=== PATIENT | female | born 2000 | race African-American/Black ===

== ENCOUNTER 2019-08-23 11:51 | Outpatient (CLI) | payer OTHER ==
--- NOTE | 2019-08-23 14:14 | Vascular Lab Report ---
DUPLEX DOPPLER LOWER EXTREMITY VEINS, BILATERAL INDICATION: Bilateral leg pain for 2 weeks, left greater than right.. Patient is 38 weeks . TECHNIQUE: Duplex doppler imaging was performed through the veins of both lower extremities using ve nous compression and other maneuvers. COMPARISON: No relevant prior imaging study available. FINDINGS: Right Common femoral vein: Negative. Right Superficial femoral vein: Negative. Right Popliteal vein: Negative. Right Calf veins: Negative. Left Common femoral vein: Negative. Left Superficial femoral vein: Negative. Left Popliteal vein: Negative. Left Calf veins: Negative. Additional findings: None.. IMPRESSION: No sonographic evidence for DVT in either lower extremity. Signer Name: Tyrell Fritz Jr, MD Signed: 08/23/2019 2:09 PM Workstation Name: [id number]
[2019-08-23 15:09] VITALS: BP 118/77
== END 2019-08-23 15:35 | disposition home or self-care (01) ==
LOC: TRG 11:51
PROVIDERS: ATTEND Obstetrics & Gynecology
DX: O26.893 Other specified pregnancy related conditions, third trimester (principal); Z3A.38 38 weeks gestation of pregnancy
CPT/HCPCS: 93970

== ENCOUNTER 2019-09-10 07:01 | Inpatient (IN) | payer OTHER ==
[2019-09-10] MEDS: LACTATED RINGERS 1,000 ML IV SCH ×2 (07:45→16:58)
[2019-09-10 10:15] LABS: Basophils # (Auto) 0.1 K/mm3 (0.0-0.1); Basophils % (Auto) 0.5 % (0.0-1.8); Eosinophils % (Auto) 0.2 % (0.0-4.3); Hematocrit 23.7 % (30.3-42.9); Hemoglobin 7.5 gm/dl (10.1-14.3); Lymphocytes # (Auto) 1.5 K/mm3 (1.2-5.4); Lymphocytes % (Auto) 12.5 % (13.4-35.0); Mean Corpuscular HGB Conc 32 % (30-34); Monocytes # (Auto) 0.8 K/mm3 (0.0-0.8); Monocytes % (Auto) 6.6 % (0.0-7.3); Platelet Count 263 K/mm3 (140-440); Red Blood Count 3.38 M/mm3 (3.65-5.03)
[2019-09-10 10:35] LABS: Mean Corpuscular Volume 70 fl (79-97); Red Cell Distribution Width 20.3 % (13.2-15.2)
[2019-09-10 10:38] LABS: Alanine Aminotransferase 6 units/L (7-56); Uric Acid 8.1 mg/dL (3.5-7.6)
[2019-09-10] MEDS ORDERED: AMPICILLIN/NS 2 GM/100 ML 2 GM/100 ML BAG IV ONE ×3 (11:17→12:53)
--- NOTE | 2019-09-10 12:29 | History and Physical Report ---
History of Present Illness Date of examination: 09/10/19 Date of admission: 09/10/19 08:46 Chief complaint: Labor, possible SROM History of present illness: Patient states she started having cntractions ~2a todya, however thinks she may have been leaking since wednesday. +Nitrazine here. Initial BP's noted, Uric acid 8.1, 3+LLE and periorbital, she denies MITCHELL, visual changes or RUQ. Past History : 1 Term Births: 0 Premature Births: 0 Living Children: 0 Para: 0 Mult. Births: 0 Prev : 0 Prev. attempt? 0 Aborta: 0 Elect. Ab: 0 Spont. Ab: 0 Ectopics: 0 Past Medical History: asthma. last inhaler use 2 years ago Past Surgical History: Negative Past Surgical History Past Medical History Surgery (Non-damper worker): Negative Past Surgical History Abnormal PAP: negative MARIA EUGENIA Exposure: negative Infertility: negative Uterine Anomaly: negative Uterine Surgery (not C/S): negative Other Gynecologic Problems: negative Family Hx: mgf stroke age 65 Social Hx: single. lives with FOC. "Nithya" denies ETOH. tobacco, drugs works as lead warehouse associate Infection History Hx of STD: none HIV Risk Eval: low risk Hepatitis B Risk Eval: low risk Personal hx. of genital herpes: no Partner hx. of genital herpes: no Rash, Viral, or Febrile illness since last LMP? no Varicella/Chicken Pox Status: Immunized TB Risk: no Genetic History Congenital Heart Defect: Mom: no Dad: no Jacy Disease: Mom: no Dad: no Thalassemia Mom: no Dad: no Neural Tube Defect Mom: no Dad: no Down's Syndrome Mom: no Dad: no Nir-Sachs Mom: no Dad: no Sickle Cell Disease/Trait Mom: no Dad: no Hemophilia Mom: no Dad: no Muscular Dystrophy Mom: no Dad: no Cystic Fibrosis Mom: no Dad: no [place] Chorea Mom: no Dad: no Mental Retardation Mom: no Dad: no Fragile X Mom: no Dad: no Other Genetic/Chromosomal Disorder Mom: no Dad: no Child w/other defect Mom: no Dad: no Enviromental Exposures Enviromental Exposures Reviewed Xray Exposure: no Medication, drug, or alcohol use since LMP: no Chemical/Other Exposure: no Exposure to Cat Liter: no Hx of Parvovirus (Fifth Disease): no Occupational Exposure to Children: none Active Medications (reviewed today): None Current Allergies (reviewed today): No known allergies Past History - Obstetrical History : 1 Medications and Allergies Allergies Allergy/AdvReac Type Severity Reaction Status Date / Time No Known Allergies Allergy Verified 08/23/19 12:38 Home Medications Medication Instructions Recorded Confirmed Last Taken Type No Known Home Medications [No 09/10/19 09/10/19 Unknown History Reported Home Medications] Active Meds: Active Medications Lactated Ringer's (Lactated Ringers) 1,000 mls @ 125 mls/hr IV DIRECT NEELIMA - Vital Signs Vital signs: Vital Signs Pulse BP 85 169/109 09/10/19 07:30 09/10/19 07:30 Temp Pulse Resp BP Pulse Ox 98.3 F 83 131/84 98 09/10/19 10:01 09/10/19 12:04 09/10/19 12:04 09/10/19 12:04 - Physical Exam Breasts: Positive: deferred Lungs: Positive: Clear to auscultation, Normal air movement Abdomen: Positive: normal appearance, soft. Negative: tenderness Genitourinary (Female): Positive: normal external genitalia, normal perenium Vulva: both: normal Uterus: Positive: enlarged. Negative: tender Anus/Rectum: Positive: normal perianal skin Extremities: Positive: edema (+3) Deep Tendon Reflex Grade: Normal +2 (no clonus) - Obstetrical FHR: category 1 Uterine Contraction Monitor Mode: External Cervical Dilatation: 4 Cervical Effacement Percentage: 90 station: -1 Uterine Contraction Pattern: Irregular (After verbal consent obtained AROM performed, small clear fluid, IUPC placed without difficulty) Results Result Diagrams: 09/10/19 09:07 09/10/19 09:07 Abnormal lab results 09/10/19 09/10/19 Range/Units 09:07 09:07 WBC 12.3 H (4.5-11.0) K/mm3 RBC 3.38 L (3.65-5.03) M/mm3 Hgb 7.5 L (10.1-14.3) gm/dl Hct 23.7 L (30.3-42.9) % MCV 70 L (79-97) fl MCH 22 L (28-32) pg RDW 20.3 H (13.2-15.2) % Lymph % (Auto) 12.5 L (13.4-35.0) % Seg Neutrophils % 80.2 H (40.0-70.0) % Seg Neutrophils # 9.8 H (1.8-7.7) K/mm3 Creatinine 0.6 L (0.7-1.2) mg/dL Uric Acid 8.1 H (3.5-7.6) mg/dL ALT 6 L (7-56) units/L All other labs normal. Assessment and Plan - Patient Problems (1) 40 weeks gestation of Current Visit: Yes Status: Acute (2) PROM with onset of labor within 24 hours of rupture Current Visit: Yes Status: Acute Qualifiers: PROM gestational age: full term Qualified Code(s): O42.02 - Full-term premature rupture of membranes, onset of labor within 24 hours of rupture Plan to address problem: Will start Ampicillin (3) Elevated blood pressure reading Current Visit: Yes Status: Acute Plan to address problem: elevated uric acid, +3 edema, UA pending, labs o/w normal. Elevated BP's possibly pain related. Observe closely
[2019-09-10] MEDS ORDERED: BUTORPHANOL 2 MG/1 ML INJ IV PRN (12:37)
[2019-09-10] MEDS ORDERED: LIDOCAINE (2%) 20 MG/1 ML VIAL 20 ML MDV INFILTRATI ONE (12:37)
[2019-09-10] MEDS ORDERED: MINERAL OIL 30 ML ORAL LIQD PO PRN (12:37)
[2019-09-10] MEDS ORDERED: TERBUTALINE 1 MG/1 ML INJ IVP PRN (12:37)
[2019-09-10] MEDS ORDERED: ONDANSETRON 4 MG/2 ML INJ IV PRN ×2 (12:37→23:34)
[2019-09-10] MEDS ORDERED: ePHEDrine SULFATE 50 MG/1 ML INJ IV PRN ×2 (12:37→15:01)
[2019-09-10] MEDS ORDERED: LACTATED RINGERS 1,000 ML IV SCH ×3 (13:00→23:45)
[2019-09-10] MEDS ORDERED: OXYTOCIN 20 UNIT/1000ML DRIP 20 UNITS/1,000 ML BAG IV SCH (13:00)
[2019-09-10] MEDS ORDERED: OXYTOCIN DRIP 30 UNITS/500 ML BAG IV SCH (13:00)
[2019-09-10 14:25] LABS: Hematocrit 24.6 % (30.3-42.9); Hemoglobin 7.6 gm/dl (10.1-14.3); Mean Corpuscular HGB Conc 31 % (30-34); Mean Corpuscular Volume 71 fl (79-97); Platelet Count 267 K/mm3 (140-440); Red Blood Count 3.46 M/mm3 (3.65-5.03)
[2019-09-10 14:31] LABS: Red Cell Distribution Width 20.4 % (13.2-15.2)
[2019-09-10] MEDS ORDERED: NALOXONE 2 MG/2 ML INJ IV PRN (15:01)
--- NOTE | 2019-09-10 15:03 | Anesthesia Consultation ---
Anesthesia Consult and Med Hx Date of service: 09/10/19 - Airway Anesthetic Teeth Evaluation: Good ROM Head & Neck: Adequate Mental/Hyoid Distance: Adequate Mallampati Class: Class II Intubation Access Assessment: Probably Good - Pulmonary Exam CTA: Yes - Cardiac Exam Cardiac Exam: RRR - Pre-Operative Health Status ASA Pre-Surgery Classification: ASA3 Proposed Anesthetic Plan: Epidural - Pulmonary Hx Asthma: Yes COPD: No Hx Pneumonia: No - Cardiovascular System Hx Hypertension: No - Central Nervous System Hx Seizures: No Hx Psychiatric Problems: No - Endocrine Hx Renal Disease: No Hx End Stage Renal Disease: No Hx Hypothyroidism: No Hx Hyperthyroidism: No - Hematic Hx Anemia: Yes Hx Sickle Cell Disease: No - Other Systems Hx Alcohol Use: No
[2019-09-10] MEDS ORDERED: fentaNYL-BUPIV 2 MCG/ML-0.125% 200 MCG/100 ML BAG EPIDURAL SCH (16:00)
[2019-09-10] MEDS: AMPICILLIN/NS 1 GM/50 ML 1 GM/50 ML BAG IV SCH ×2 (16:13→20:00)
[2019-09-10] MEDS ORDERED: FAMOTIDINE 20 MG/2 ML INJ IV SCH (17:00)
[2019-09-10] MEDS ORDERED: BUPIVACAINE/PF (0.25%) 2.5 MG/ML 10 ML VIAL INFILTRATI ONE (17:33)
[2019-09-10] MEDS ORDERED: DEXMEDETOMIDINE 200 MCG/2 ML VIAL IV ONE (17:34)
[2019-09-10 20:25] LABS: Bilirubin,Urine NEG (Negative); Blood,Urine NEG (Negative); Color,Urine Yellow (Yellow); Urobilinogen,Urine < 2.0 mg/dL (<2.0)
[2019-09-10] MEDS ORDERED: CARBOPROST TROMETHAMINE 250 MCG/1 ML INJ IM ONE ×2 (22:39→22:42)
[2019-09-10] MEDS ORDERED: miSOPROStol 200 MCG TAB PR ONE (22:39)
[2019-09-10] MEDS ORDERED: OXYTOCIN 10 UNIT/1 ML INJ IM ONE (22:39)
[2019-09-10] MEDS ORDERED: OXYTOCIN 10 UNIT/1 ML INJ ONE (22:40)
[2019-09-10] MEDS ORDERED: LOPERAMIDE 2 MG CAP PO ONE (22:43)
--- NOTE | 2019-09-10 23:25 | Procedure Note ---
OB Delivery Note - Delivery Date of Delivery: 09/10/19 Surgeon: ZACHARIAH ZHANG Estimated blood loss: other (750mL) - Vaginal Delivery presentation: vertex Delivery position: OA Intrapartum events: hemorrhage Delivery augmentation: rupture of membranes, pitocin Delivery monitor: external FHT, external uterine, internal uterine Route of delivery: Delivery placenta: spontaneous (intact) Episiotomy: none Delivery laceration: 1st degree (left distal lateral vagina, repaired with 3- 0vicryl figure of eight x1) Delivery repair: vicryl Anesthesia: epidural Delivery comments: Patient had ~750mL bleeding, uterine atony noted, small fragments of membranes removed from the uterus. Hemostasis obtained with manual massage, Pitocin 10uIM and 50u IVF, Cytotec 600mcg MS and Hemabate 250mcg IM. Bedsider US revelaed thin endometrial stripe w/o evidence of retained POC. Methergine was not given d/t elevated BP's. A second IV was placed wht LR bolus started. She remained alert and appropriately responsive. CBC, PT, PTT ordered, currently pending, order placed to Type and Hold. - A at 1 minute: 8 at 5 minutes: 9 Infant Gender: Male (8lbs 6oz)
[2019-09-10 23:32] LABS: Hematocrit 20.6 % (30.3-42.9); Hemoglobin 6.3 gm/dl (10.1-14.3); Mean Corpuscular HGB Conc 31 % (30-34); Mean Corpuscular Volume 71 fl (79-97); Platelet Count 227 K/mm3 (140-440); Red Blood Count 2.91 M/mm3 (3.65-5.03)
[2019-09-10] MEDS ORDERED: WITCH HAZEL/ GLYCERIN PAD TP PRN (23:34)
[2019-09-10] MEDS ORDERED: PROMETHAZINE 25 MG RECT SUPP PR PRN (23:34)
[2019-09-10] MEDS ORDERED: ACETAMINOPHEN 325 MG TAB PO PRN (23:34)
[2019-09-10] MEDS ORDERED: MAGNESIUM HYDROXIDE (MOM) ORAL LIQD UDC PO PRN (23:34)
[2019-09-10] MEDS ORDERED: LANOLIN/ZINC/DIMETHICONE (LANSINOH) 7 GM TP PRN (23:34)
[2019-09-10] MEDS ORDERED: PROMETHAZINE 25 MG TAB PO PRN (23:34)
[2019-09-10] MEDS ORDERED: diphenhydrAMINE 25 MG CAP PO PRN (23:34)
[2019-09-10 23:43] LABS: INR 1.16 (0.87-1.13)
[2019-09-10 23:45] LABS: Partial Thromboplastin Time 34.2 Sec. (24.2-36.6)
[2019-09-10] MEDS ORDERED: MAGNESIUM SULFATE 40GM/1000ML 40 GM/1,000 ML BAG IV SCH (23:45)
[2019-09-10 23:51] LABS: Red Cell Distribution Width 20.4 % (13.2-15.2)
[2019-09-11] MEDS ORDERED: ACETAMINOPHEN 500 MG TAB PO ONE ×3 (00:14→03:44)
[2019-09-11] MEDS ORDERED: MAGNESIUM SULFATE 2 GM/50 ML BAG IV ONE (00:30)
[2019-09-11] MEDS: AMPICILLIN/NS 1 GM/50 ML 1 GM/50 ML BAG IV SCH (02:29)
[2019-09-11 05:15] LABS: Hemoglobin 6.2 gm/dl (10.1-14.3)
[2019-09-11 05:23] LABS: Hematocrit 19.9 % (30.3-42.9)
[2019-09-11] MEDS ORDERED: SODIUM CHLORIDE 0.9% 500 ML 500 ML IV ONE ×2 (05:31)
--- NOTE | 2019-09-11 05:50 | Event Note ---
Date: 09/11/19 (Mag level 8.8) Poss drawn just above MGSO4 Pt is A&O X 3 Grasp = bilateral Urine out put good. MGSO4 off. aware.
[2019-09-11] MEDS ORDERED: TETANUS,DIPH,PERTUSS(ACELL) VACCINE 0.5 ML SYRINGE IM ONE (06:00)
--- NOTE | 2019-09-11 06:37 | Progress Note ---
Assessment and Plan Pt A&O X 3 FF @ umb Lochia small Perineum intact. Mag level 8.8 MGSO4 off. Amado removed. H&H 04/26 Will transfuse 2 more units RBC Will continue PP pathway. Subjective - Subjective Date of service: 09/11/19 (MGSO4 off d/t elevated mag level 8.8) Principal diagnosis: 09-10-19; PPH;elevated BP; Transfusion 3 units Patient reports: voiding normally (clear yellow urine to BSB), pain well controlled [place]: doing well Objective - Vital Signs Latest vital signs: Vital Signs Temp Pulse Resp BP Pulse Ox 09/11/19 06:08 101 H 97 09/11/19 06:03 98 H 97 09/11/19 05:58 109 H 98 09/11/19 05:53 110 H 98 09/11/19 05:52 107 H 105/53 09/11/19 05:48 101 H 97 09/11/19 05:43 101 H 97 09/11/19 05:38 104 H 97 09/11/19 05:33 100 H 97 09/11/19 05:28 101 H 97 09/11/19 05:23 113 H 98 09/11/19 05:22 99 H 103/53 09/11/19 05:18 98 H 97 09/11/19 05:13 99 H 97 09/11/19 05:08 99 H 97 09/11/19 05:03 100 H 96 09/11/19 04:58 102 H 96 09/11/19 04:53 109 H 98 09/11/19 04:52 104 H 106/53 09/11/19 04:48 112 H 98 09/11/19 04:43 113 H 98 09/11/19 04:38 116 H 97 09/11/19 04:33 115 H 97 09/11/19 04:28 119 H 97 09/11/19 04:23 113 H 97 09/11/19 04:22 111 H 110/57 09/11/19 04:18 114 H 97 09/11/19 04:13 115 H 97 09/11/19 04:08 114 H 98 09/11/19 04:03 111 H 99 09/11/19 03:58 113 H 99 09/11/19 03:53 113 H 99 09/11/19 03:52 111 H 119/69 09/11/19 03:48 108 H 99 09/11/19 03:43 107 H 15 99 09/11/19 03:38 98.4 F 111 H 15 114/59 100 09/11/19 03:33 111 H 99 09/11/19 03:28 109 H 99 09/11/19 03:23 109 H 98 09/11/19 03:22 108 H 114/59 09/11/19 03:20 98.4 F 108 H 16 114/59 98 09/11/19 03:18 110 H 99 09/11/19 03:13 127 H 98 09/11/19 03:08 115 H 98 09/11/19 03:03 120 H 99 09/11/19 02:58 121 H 97 09/11/19 02:53 120 H 97 09/11/19 02:52 117 H 108/58 09/11/19 02:50 98.4 F 117 H 16 108/58 99 09/11/19 02:48 117 H 97 09/11/19 02:43 117 H 97 09/11/19 02:38 112 H 97 09/11/19 02:33 116 H 98 09/11/19 02:28 117 H 98 09/11/19 02:23 119 H 98 09/11/19 02:22 118 H 108/66 09/11/19 02:20 98.5 F 118 H 16 108/66 98 09/11/19 02:18 114 H 97 09/11/19 02:13 113 H 98 09/11/19 02:08 111 H 98 09/11/19 02:03 111 H 98 09/11/19 01:58 112 H 98 09/11/19 01:53 114 H 99 09/11/19 01:50 98.5 F 112 H 15 106/64 99 09/11/19 01:48 113 H 99 09/11/19 01:43 117 H 99 09/11/19 01:42 116 H 108/66 09/11/19 01:38 112 H 100 09/11/19 01:35 98.2 F 114 H 15 105/68 100 09/11/19 01:33 116 H 105/68 99 09/11/19 01:28 120 H 99 09/11/19 01:23 115 H 111/72 98 09/11/19 01:18 114 H 99 09/11/19 01:13 110 H 101/60 98 09/11/19 01:08 113 H 100 09/11/19 01:03 111 H 107/59 99 09/11/19 00:58 108 H 100 09/11/19 00:53 148 H 100 09/11/19 00:50 106 H 111/60 09/11/19 00:48 109 H 100 09/11/19 00:45 113 H 114/62 09/11/19 00:43 115 H 99 09/11/19 00:40 111 H 106/59 09/11/19 00:38 110 H 97 09/11/19 00:34 116 H 118/57 09/11/19 00:33 121 H 97 09/11/19 00:28 124 H 98 09/11/19 00:25 110 H 116/73 09/11/19 00:23 123 H 98 09/11/19 00:20 121 H 100/66 09/11/19 00:18 121 H 97 09/11/19 00:15 116 H 104/65 09/11/19 00:13 119 H 98 09/11/19 00:08 117 H 98 09/11/19 00:03 116 H 95 09/11/19 00:00 117 H 111/55 09/10/19 23:58 149 H 97 09/10/19 23:54 123 H 90 09/10/19 23:53 120 H 98 09/10/19 23:48 122 H 100 09/10/19 23:45 121 H 114/67 09/10/19 23:42 121 H 98 09/10/19 23:38 116 H 99 09/10/19 23:34 118 H 114/76 09/10/19 23:33 118 H 95 09/10/19 23:28 116 H 96 09/10/19 23:23 124 H 97 09/10/19 23:18 110 H 95 09/10/19 23:14 117 H 130/75 09/10/19 23:13 118 H 96 09/10/19 23:09 107 H 137/76 09/10/19 23:08 121 H 95 09/10/19 23:03 102 H 93 09/10/19 23:02 103 H 149/83 09/10/19 22:58 106 H 93 09/10/19 22:53 106 H 95 09/10/19 22:50 107 H 152/88 09/10/19 22:48 124 H 99 09/10/19 22:43 133 H 116/54 100 09/10/19 22:38 118 H 99 09/10/19 22:33 115 H 99 09/10/19 22:28 122 H 95 09/10/19 22:23 122 H 100 09/10/19 22:18 111 H 98 09/10/19 22:13 122 H 98 09/10/19 22:08 120 H 99 09/10/19 22:03 127 H 99 09/10/19 21:58 133 H 99 09/10/19 21:54 114 H 141/76 09/10/19 21:53 126 H 100 09/10/19 21:48 95 H 100 09/10/19 21:43 102 H 99 09/10/19 21:38 92 H 99 09/10/19 21:33 85 99 09/10/19 21:28 86 100 09/10/19 21:25 91 H 148/80 09/10/19 21:23 91 H 100 09/10/19 21:18 90 100 09/10/19 21:13 86 100 09/10/19 21:08 99 H 100 09/10/19 21:03 96 H 100 09/10/19 21:00 98.5 F 09/10/19 20:58 104 H 100 09/10/19 20:54 96 H 149/93 09/10/19 20:53 84 98 09/10/19 20:48 72 97 09/10/19 20:43 82 95 09/10/19 20:38 81 95 09/10/19 20:33 78 95 09/10/19 20:28 69 96 09/10/19 20:24 80 142/90 09/10/19 20:23 85 95 09/10/19 20:18 81 96 09/10/19 20:13 77 95 09/10/19 20:08 84 97 09/10/19 20:03 80 98 09/10/19 20:02 82 142/90 09/10/19 19:58 74 96 09/10/19 19:54 74 140/87 09/10/19 19:53 80 96 09/10/19 19:47 79 95 09/10/19 19:43 81 98 09/10/19 19:38 85 94 09/10/19 19:32 78 94 09/10/19 19:30 98.1 F 09/10/19 19:28 77 94 09/10/19 19:24 90 134/86 09/10/19 19:23 86 94 09/10/19 19:17 72 96 09/10/19 19:11 93 H 91 09/10/19 19:07 92 H 93 09/10/19 19:02 77 92 09/10/19 18:57 78 94 09/10/19 18:54 76 94 09/10/19 18:53 73 126/72 09/10/19 18:52 75 96 09/10/19 18:48 88 94 09/10/19 18:46 91 H 116/76 96 09/10/19 18:42 98.2 F 84 95 09/10/19 18:41 91 H 114/71 09/10/19 18:37 104 H 110/69 95 09/10/19 18:34 84 94 09/10/19 18:32 92 H 94 09/10/19 18:31 92 H 125/63 09/10/19 18:28 80 125/64 93 09/10/19 18:27 89 94 09/10/19 18:22 89 113/61 09/10/19 18:21 87 93 09/10/19 18:17 92 H 115/67 94 09/10/19 18:13 92 H 126/63 09/10/19 18:12 89 92 09/10/19 18:10 88 09/10/19 18:06 76 118/67 92 09/10/19 18:03 74 116/63 09/10/19 18:02 77 94 09/10/19 18:01 72 87 09/10/19 17:56 90 119/63 90 09/10/19 17:51 81 128/71 88 09/10/19 17:46 79 133/72 91 09/10/19 17:42 71 142/71 09/10/19 17:41 83 91 09/10/19 17:37 84 142/86 09/10/19 17:36 83 93 09/10/19 17:35 88 141/68 09/10/19 17:32 101 H 142/76 09/10/19 17:31 100 H 95 09/10/19 17:30 106 H 94 09/10/19 17:26 94 H 126/73 94 09/10/19 17:24 99 H 94 09/10/19 17:21 87 132/71 96 09/10/19 17:16 92 H 144/75 97 09/10/19 17:11 98 H 145/86 97 09/10/19 17:08 110 H 92 09/10/19 17:07 97 H 146/87 09/10/19 17:06 92 H 95 09/10/19 17:03 105 H 133/77 09/10/19 17:02 103 H 94 09/10/19 17:01 98 H 95 09/10/19 16:57 96 H 138/72 09/10/19 16:56 103 H 96 09/10/19 16:51 90 128/71 96 09/10/19 16:50 97 H 94 09/10/19 16:46 90 124/70 98 09/10/19 16:43 88 131/70 09/10/19 16:41 97 H 97 09/10/19 16:36 93 H 127/79 97 09/10/19 16:32 90 136/89 09/10/19 16:31 99 H 99 09/10/19 16:28 83 132/85 09/10/19 16:26 90 98 09/10/19 16:21 96 H 144/97 98 09/10/19 16:17 104 H 139/96 09/10/19 16:16 97 H 99 09/10/19 16:11 89 138/93 99 09/10/19 16:07 85 135/90 09/10/19 16:06 90 99 09/10/19 16:01 85 135/82 99 09/10/19 15:56 95 H 142/90 100 09/10/19 15:51 90 138/81 98 09/10/19 15:46 85 139/73 99 09/10/19 15:42 110 H 139/94 09/10/19 15:41 107 H 100 09/10/19 15:37 83 130/83 09/10/19 15:36 81 99 09/10/19 15:31 104 H 135/85 99 09/10/19 15:26 81 133/77 98 09/10/19 15:22 90 145/88 09/10/19 15:21 85 99 09/10/19 15:16 82 128/76 99 09/10/19 15:15 95 H 127/74 09/10/19 15:11 87 119/66 97 09/10/19 15:06 100 H 132/74 98 09/10/19 15:01 93 H 98 09/10/19 14:58 109 H 119/77 09/10/19 14:56 90 98 09/10/19 14:51 92 H 99 09/10/19 14:46 90 99 09/10/19 14:41 88 100 09/10/19 13:12 82 122/70 09/10/19 12:04 83 131/84 98 09/10/19 11:30 98.8 F 09/10/19 10:43 98 H 98 09/10/19 10:18 79 125/69 09/10/19 10:01 98.3 F 78 09/10/19 09:30 78 133/85 09/10/19 09:26 83 98 09/10/19 09:21 86 97 09/10/19 09:16 84 98 09/10/19 09:13 33 L 93 09/10/19 09:11 77 99 09/10/19 09:06 86 97 09/10/19 09:02 77 135/84 09/10/19 09:01 81 97 09/10/19 08:14 78 135/77 09/10/19 08:07 85 137/86 09/10/19 07:45 79 139/77 09/10/19 07:32 86 154/99 09/10/19 07:30 85 169/109 Intake and Output 09/10/19 09/10/19 09/11/19 14:59 22:59 06:59 Intake Total 740 2538.333 1344.50 Output Total 250 1400 Balance 740 2288.333 -55.50 Intake: IV 500 2538.333 1344.50 AMPICILLIN/NS 1 GM/50 ML 100 1 gm In 50 ml @ 100 mls/ hr IV Q4HR NEELIMA Rx#: [id number] Lactated Ringers 1,000 ml 500 400 @ 125 mls/hr IV DIRECT NEELIMA Rx#:[id number] Lactated Ringers 1,000 ml 966.667 @ 125 mls/hr IV DIRECT NEELIMA Rx#:[id number] Lactated Ringers 1,000 ml 1000 @ 125 mls/hr IV DIRECT NEELIMA Rx#:[id number] MAGNESIUM SULFATE 2GM/ 12.5 50ML 2 gm In 50 ml @ 25 mls/hr IV ONCE ONE Rx#: [id number] PITOCin/NS 20 UNIT/1000ML 915.75 DRIP 20 units In 1,000 ml @ 125 mls/hr IV DIRECT NEELIMA Rx#:[id number] PITOCin/NS 30 UNIT/500ML 71.666 416.25 30 units In 500 ml @ 4 mls/hr IV TITR NEELIMA Rx#: [id number] Oral 240 Blood Product 0 Leukoreduced Red Blood 0 Cells Unit [id number] Output: Urine 250 1400 Indwelling Catheter 250 1400 Other: Total, Intake Amount 240 Total, Output Amount 250 300 # Voids Void 2 Weight 200 lb Estimated Blood Loss 750 Patient Weight 09/11/19 06:59 Weight 200 lb - Exam Breasts: Present: normal Cardiovascular: Present: Regular rate Lungs: Present: Clear to auscultation Abdomen: Present: normal appearance, soft, normal bowel sounds Uterus: Present: normal, fundal height at umbilicus Extremities: Present: normal Incision: Present: normal, dry, intact - Labs Labs: Abnormal lab results 09/10/19 09/10/19 09/10/19 Range/Units 09:07 09:07 09:07 WBC 12.3 H (4.5-11.0) K/mm3 RBC 3.38 L (3.65-5.03) M/mm3 Hgb 7.5 L (10.1-14.3) gm/dl Hct 23.7 L (30.3-42.9) % MCV 70 L (79-97) fl MCH 22 L (28-32) pg RDW 20.3 H (13.2-15.2) % Lymph % (Auto) 12.5 L (13.4-35.0) % Seg Neutrophils % 80.2 H (40.0-70.0) % Seg Neutrophils # 9.8 H (1.8-7.7) K/mm3 INR (0.87-1.13) Creatinine 0.6 L (0.7-1.2) mg/dL Uric Acid 8.1 H (3.5-7.6) mg/dL Magnesium (1.7-2.3) mg/dL ALT 6 L (7-56) units/L Crossmatch See Detail 09/10/19 09/10/19 09/10/19 Range/Units 13:33 23:16 23:16 WBC 12.8 H 13.4 H (4.5-11.0) K/mm3 RBC 3.46 L 2.91 L (3.65-5.03) M/mm3 Hgb 7.6 L 6.3 L (10.1-14.3) gm/dl Hct 24.6 L 20.6 L (30.3-42.9) % MCV 71 L 71 L (79-97) fl MCH 22 L 22 L (28-32) pg RDW 20.4 H 20.4 H (13.2-15.2) % Lymph % (Auto) (13.4-35.0) % Seg Neutrophils % (40.0-70.0) % Seg Neutrophils # (1.8-7.7) K/mm3 INR 1.16 H (0.87-1.13) Creatinine (0.7-1.2) mg/dL Uric Acid (3.5-7.6) mg/dL Magnesium (1.7-2.3) mg/dL ALT (7-56) units/L Crossmatch 09/11/19 09/11/19 Range/Units 04:40 04:40 WBC (4.5-11.0) K/mm3 RBC (3.65-5.03) M/mm3 Hgb 6.2 L (10.1-14.3) gm/dl Hct 19.9 L* (30.3-42.9) % MCV (79-97) fl MCH (28-32) pg RDW (13.2-15.2) % Lymph % (Auto) (13.4-35.0) % Seg Neutrophils % (40.0-70.0) % Seg Neutrophils # (1.8-7.7) K/mm3 INR (0.87-1.13) Creatinine (0.7-1.2) mg/dL Uric Acid (3.5-7.6) mg/dL Magnesium 8.80 H (1.7-2.3) mg/dL ALT (7-56) units/L Crossmatch
[2019-09-11] MEDS ORDERED: SODIUM CHLORIDE 0.9% 500 ML 500 ML ONE (08:07)
[2019-09-11] MEDS: IBUPROFEN 600 MG TAB PO SCH ×2 (12:00→19:09)
[2019-09-11] MEDS ORDERED: FLU VACC QUAD 2019-20 (3 YR UP)/PF 60 MCG/0.5 ML SYRINGE IM ONE (12:00)
[2019-09-11 16:10] LABS: Hematocrit 25.3 % (30.3-42.9); Hemoglobin 8.1 gm/dl (10.1-14.3)
[2019-09-11] MEDS: DOCUSATE SODIUM 100 MG CAP PO SCH (22:04)
[2019-09-11] MEDS: FERROUS SULFATE 325 MG TAB PO SCH (22:04)
[2019-09-12] MEDS: IBUPROFEN 600 MG TAB PO SCH ×2 (00:10→05:58)
[2019-09-12] MEDS ORDERED: TETANUS,DIPH,PERTUSS(ACELL) VACCINE 0.5 ML SYRINGE IM ONE (06:00)
--- NOTE | 2019-09-12 08:10 | Discharge Summary ---
Providers - Providers Date of Admission: 09/10/19 08:46 Date of discharge: 09/12/19 (pt desires d/c home) Attending physician: ZACHARIAH ZHANG 09/10/19 23:44 Consult to Master Carpenter [CONS] Routine Reason For Exam: assistance with , SNS Primary care physician: ZACHARIAH ZHANG Hospitalization Reason for admission: Labor Condition: Good Pertinent studies: post transfusion H&H 8.1/25.3, asymptomatic, existing anemia Procedures: w/ PPH Hospital course: and course complicated by PPH Disposition: DC-01 TO HOME OR SELFCARE - Discharge Diagnoses (1) (normal spontaneous vaginal delivery) Status: Acute Core Measure Documentation - Palliative Care Palliative Care/ Comfort Measures: Not Applicable - Core Measures Any of the following diagnoses?: none Exam - Constitutional Vitals: Temp Pulse Resp BP Pulse Ox 98.2 F 91 H 20 119/74 99 09/11/19 23:07 09/11/19 23:07 09/11/19 23:07 09/11/19 23:07 09/11/19 23:07 General appearance: Present: no acute distress - EENT Eyes: Present: PERRL ENT: hearing intact, clear oral mucosa - Neck Neck: Present: supple, normal ROM - Respiratory Respiratory effort: normal Respiratory: bilateral: CTA - Extremities Extremities: No edema - Abdominal General gastrointestinal: Present: soft, non-tender, non-distended, normal bowel sounds Female genitourinary: Present: normal - Integumentary Integumentary: Present: clear, warm, dry - Musculoskeletal Musculoskeletal: gait normal, strength equal bilaterally - Psychiatric Psychiatric: appropriate mood/affect, intact judgment & insight - Neurologic Neurologic: CNII-XII intact, moves all extremities - Additional findings Additional findings: fundus firm, lochia scant, bottle feeding, VSSAF Plan Activity: no restrictions Diet: regular Follow up with: ZACHARIAH ZHANG MD [Primary Care Provider] - 7 Days (Congratulations! Please call [phone] to schedule your son's circumcision in 1 week and your visit in 4 weeks. Bring EMLA cream to your son's appointment and wait for further instructions. Call for any questions or concerns. ) Prescriptions: Lidocain2.5%/Prilocai2.5% [Emla] 5 gm TP ONCE PRN #1 tube PRN Reason: Pain Ibuprofen [Motrin 800 MG tab] 800 mg PO Q8HR PRN #30 tablet PRN Reason: Pain
[2019-09-12] MEDS: DOCUSATE SODIUM 100 MG CAP PO SCH ×2 (09:55→21:15)
[2019-09-12] MEDS: FERROUS SULFATE 325 MG TAB PO SCH ×2 (09:55→21:15)
[2019-09-12 17:18] VITALS: BP 130/88
== END 2019-09-12 23:35 | disposition home or self-care (01) | DRG 774 ==
LOC: TRG 07:01 → LD 08:46 → OB 09-11 12:02
PROVIDERS: ADMIT Obstetrics & Gynecology; ATTEND Obstetrics & Gynecology
PROC: 10E0XZZ Delivery of Products of Conception, External Approach (ICD-10-PCS; principal; 2019-09-10)
PROC: 3E0R3BZ Introduction of Anesthetic Agent into Spinal Canal, Percutaneous Approach (ICD-10-PCS; 2019-09-10)
PROC: 00HU33Z Insertion of Infusion Device into Spinal Canal, Percutaneous Approach (ICD-10-PCS; 2019-09-10)
PROC: 0HQ9XZZ Repair Perineum Skin, External Approach (ICD-10-PCS; 2019-09-10)
PROC: 0UQGXZZ Repair Vagina, External Approach (ICD-10-PCS; 2019-09-10)
PROC: 10907ZC Drainage of Amniotic Fluid, Therapeutic from Products of Conception, Via Natural or Artificial Opening (ICD-10-PCS; 2019-09-10)
PROC: 10H07YZ Insertion of Other Device into Products of Conception, Via Natural or Artificial Opening (ICD-10-PCS; 2019-09-10)
PROC: 30233N1 Transfusion of Nonautologous Red Blood Cells into Peripheral Vein, Percutaneous Approach (ICD-10-PCS; 2019-09-11)
PROC: 3E0234Z Introduction of Serum, Toxoid and Vaccine into Muscle, Percutaneous Approach (ICD-10-PCS; 2019-09-12)
DX: O42.02 Full-term premature rupture of membranes, onset of labor within 24 hours of rupture (principal); O72.1 Other immediate postpartum hemorrhage; Z3A.40 40 weeks gestation of pregnancy; Z37.0 Single live birth; Z23 Encounter for immunization; J45.909 Unspecified asthma, uncomplicated; O70.0 First degree perineal laceration during delivery; O99.02 Anemia complicating childbirth; O99.52 Diseases of the respiratory system complicating childbirth
CPT/HCPCS: 36415; 81001; 82565; 83615; 83735; 84450; 84460; 84550; 85014; 85018; 85025; 85027; 85610; 85730; 86592; 86850; 86900; 86901; 86920; 90471; 90686; 90715; G0378; J0290; J2590; J3475; J3490; J7040; J7120; P9016